=== PATIENT | female | born 1970 ===

== ENCOUNTER 2018-06-04 13:44 | Outpatient (CLI) | payer BC, OTHER ==
--- NOTE | 2018-06-05 10:51 | Mammography Report ---
Procedure Date: 06/04/2018 Accession Number: [id number] / [id number] Procedure: MGN - Screening Mammo Dig Bilat CPT Code: FULL RESULT: EXAM: Screening Mammo Dig Bilat DATE: 06/04/2018 2:19 PM CLINICAL HISTORY: Routine screening TECHNIQUE: Bilateral CC and MLO views were obtained. COMPARISON: None FINDINGS: The breast tissue is heterogeneously dense. No clustered microcalcifications or regions of architectural distortion are identified. There is a nodular area of increased density in the upper inner mid left breast for which spot compression and true lateral views are suggested. If the density persists ultrasound may be useful. No other dominant mass is seen. IMPRESSION: Needs additional evaluation left breast. Negative right breast. RECOMMENDATION: Additional spot compression and true lateral view left breast. Possible ultrasound left breast. BIRADS CATEGORY 0: Needs additional evaluation left breast. STANDARD QUALIFYING STATEMENTS: 1. This examination was reviewed with the aid of Computer-Aided Detection (CAD). 2. A negative or benign imaging report should not delay biopsy if clinically suspicious findings are present. Consider surgical consultation if warrented. More than 5% of cancers are not identified by imaging. 3. Dense breasts may obscure an underlying neoplasm.
== END 2018-06-04 13:45 | disposition home or self-care (01) ==
LOC: DI.N 13:44
PROVIDERS: ATTEND Family Medicine
DX: Z12.31 Encounter for screening mammogram for malignant neoplasm of breast (principal)
CPT/HCPCS: 77067

== ENCOUNTER 2018-10-11 07:44 | Outpatient (CLI) | payer BC, OTHER ==
--- NOTE | 2018-10-11 09:06 | Mammography Report ---
Reason: ABN MAMMOGRAM Procedure Date: 10/11/2018 Accession Number: [id number] / [id number] Procedure: MARIXA - Diag Special Views Dig LT CPT Code: FULL RESULT: EXAM: Diag Special Views Dig LT DATE: 10/11/2018 8:16 AM CLINICAL HISTORY: Diagnostic exam. Patient has a history of late childbearing and is recalled from screening for findings in the upper inner mid left breast requiring spot compression and true lateral views. TECHNIQUE: Left breast CC, MLO and ML views were obtained in 2-D and 3-D mammographic technique. COMPARISON: 06/04/2018. FINDINGS: The breasts demonstrate heterogeneously dense fibroglandular parenchyma bilaterally. The previously identified focal asymmetry does not persist with 3-D tomographic technique and is identified as normal breast tissue. No suspicious masses, calcifications or architectural distortion is seen. IMPRESSION: Negative examination RECOMMENDATION: Recommend routine annual Screening mammography unless otherwise clinically indicated. BIRADS CATEGORY 1: Negative STANDARD QUALIFYING STATEMENTS: 1. This examination was not reviewed with the aid of Computer-Aided Detection (CAD). 2. A negative or benign imaging report should not delay biopsy if clinically suspicious findings are present. Consider surgical consultation if warrented. More than 5% of cancers are not identified by imaging. 3. Dense breasts may obscure an underlying neoplasm. 4. This examination was reviewed with the aid of 3D imaging (tomography).
== END 2018-10-11 07:45 | disposition home or self-care (01) ==
LOC: DI 07:44
PROVIDERS: ATTEND Family Medicine
DX: R92.8 Other abnormal and inconclusive findings on diagnostic imaging of breast (principal)

== ENCOUNTER 2019-04-24 12:02 | Outpatient (CLI) | payer OTHER ==
--- NOTE | 2019-04-25 07:58 | XRAY Report ---
Reason: RT FOOT PAIN 5TH TOE DISLOCATION Procedure Date: 04/24/2019 Accession Number: [id number] / [id number] Procedure: XR - Foot 3 View RT CPT Code: FULL RESULT: EXAM: RIGHT FOOT RADIOGRAPHY EXAM DATE: 04/24/2019 12:19 PM. CLINICAL HISTORY: Right foot pain, 5th toe dislocation. COMPARISON: None. TECHNIQUE: 3 views. FINDINGS: Bones: Oblique intra-articular complex fracture is present involving the proximal aspect of the right fifth proximal phalanx with extension into the right fifth metatarsophalangeal joint. Diffuse trabecular thickening an enlargement is seen throughout the calcaneus. Joints: Degenerative changes of the right first MTP joint and right midfoot. Soft Tissues: Normal. No soft tissue swelling. IMPRESSION: 1. Intra-articular mildly complex oblique right fifth proximal phalanx fracture. [facility]
== END 2019-04-24 12:03 | disposition home or self-care (01) ==
LOC: DI 12:02
PROVIDERS: ATTEND Physician Assistant
DX: S92.511A Displaced fracture of proximal phalanx of right lesser toe(s), initial encounter for closed fracture (principal)